=== PATIENT | female | born 1970 | race Two or more races ===

== ENCOUNTER 2024-06-04 07:37 | Day surgery (SDC) | payer OTHER ==
[~2024-06-04] VITALS: Ht 154.9 cm; Wt 57.2 kg
[~2024-06-04 07:37] MED LIST: CELEBREX200MG PO; RINVOQ ER15 MG PO
[2024-06-04] MEDS ORDERED: PERCOCET 5-3251 EACH PO (10:09)
[2024-06-04] MEDS ORDERED: MEDROLPACK PO (10:10)
[2024-06-04] MEDS ORDERED: ZOFRAN8 MG PO (10:10)
[2024-06-04] MEDS ORDERED: COLACE100 MG PO (10:10)
[2024-06-04] MEDS ORDERED: PROMETHAZINE HCL 50 MG/ML AMPUL IM PRN (10:15)
[2024-06-04] MEDS ORDERED: 0.9 % SODIUM CHLORIDE 1,000 ML IV SCH (10:15)
[2024-06-04] MEDS ORDERED: ENALAPRILAT DIHYDRATE 1.25 MG/ML VIAL IV PRN (10:15)
[2024-06-04] MEDS ORDERED: MORPHINE SULFATE 4 MG,MORPHINE SULFATE 2 MG IV SCH (13:00)
[2024-06-04] MEDS ORDERED: DOCUSATE SODIUM 100MG CAP PO SCH (13:00)
[2024-06-04] MEDS ORDERED: HEMOSTATIC MATRIX WITH THROMBIN KIT TOP ONE (13:04)
[2024-06-04] MEDS ORDERED: VANCOMYCIN HCL 1,000 MG VIAL ONE (13:05)
[2024-06-04] MEDS ORDERED: METHYLPREDNISOLONE SOD SUCC 125 MG VIAL ONE (13:05)
[2024-06-04] MEDS ORDERED: METHYLPREDNISOLONE ACETATE 80 MG/ML VIAL ONE (13:18)
[2024-06-04] MEDS ORDERED: ACETAMINOPHEN 500 MG GEL..CAP PO ONE ×2 (15:30→15:31)
[2024-06-04] MEDS ORDERED: CEFAZOLIN SODIUM 1,000 MG in 0.9 % SODIUM CHLORIDE 50 ML IV SCH (17:00)
[2024-06-04] MEDS ORDERED: FAMOtidine 20 MG TABLET PO SCH (17:00)
[2024-06-04] MEDS ORDERED: METHYLPREDNISOLONE SOD SUCC 125 MG VIAL IV SCH (17:00)
[2024-06-04] MEDS ORDERED: VANCOMYCIN HCL 1,000 MG VIAL IV SCH (21:00)
[2024-06-05] MEDS ORDERED: SODIUM CHLORIDE 0.45 % 1,000 ML IV SCH
[2024-06-05] MEDS ORDERED: OxyCODONE HCL/APAP UD (PERCOCET) PO PRN (06:01)
[2024-06-05] MEDS ORDERED: TAMSULOSIN HCL 0.4 MG CAP PO SCH (09:00)
== END 2024-06-04 17:20 | disposition home or self-care (01) ==
LOC: CIR.AMB 07:37 → SURG 07:37 → O/R 07:37 → EDSTATUS 12:30 → SURG 12:30 → CIR.AMB 17:20 → O/R 17:20
PROVIDERS: ATTEND Orthopaedic Surgery Orthopaedic Surgery of the Spine
DX: M50.021 Cervical disc disorder at C4-C5 level with myelopathy (principal); Z53.09 Procedure and treatment not carried out because of other contraindication